=== PATIENT | male | born 1975 | race Caucasian/White ===

== ENCOUNTER 2016-05-16 08:32 | Emergency (ER) | payer MEDICAID, OTHER ==
[~2016-05-16] VITALS: Ht 182.9 cm; Wt 67.1 kg
[~2016-05-16 08:32] MED LIST: EAR DROPS 15 ML15 M1; MOTRIN600 MG PO; PENICILLIN
[2016-05-16 08:36] VITALS: BP 119/89
--- NOTE | 2016-05-16 08:40 | NUR ---
Patient ambulated to bed 3. RN evaluating patient at bedside.
--- NOTE | 2016-05-16 08:43 | NUR ---
Visual acuity completed by RN.
--- NOTE | 2016-05-16 08:45 | NUR ---
Dr. [place] evaluating patient at bedside.
--- NOTE | 2016-05-16 08:49 | NUR ---
PT PRESENTS TO ER W/C/O RIGHT EYE PAIN. PT STATES HE'S HAD THE PAIN AND REDNESS X2 WEEK, AND NOW IS STARTING TO FEEL PAIN IN HIS LEFT EYE. DENIES N/V/D; SKIN IS PINK/WARM/DRY; AAOX4 WITH EVEN AND STEADY GAIT; LUNGS CLEAR BL; HR EVEN AND REGULAR; PT DENIES ANY FEVER, CP, SOB, OR COUGH AT THIS TIME; PATIENT STATES PAIN OF 4/10 AT THIS TIME; VSS; PATIENT POSITIONED FOR COMFORT; HOB ELEVATED; BEDRAILS UP X2; BED DOWN. ER MD MADE AWARE OF PT STATUS.
[2016-05-16 09:09] VITALS: BP 114/74
--- NOTE | 2016-05-16 09:10 | NUR ---
Patient discharged with v/s stable. Written and verbal after care instructions given and explained. Patient alert, oriented and verbalized understanding of instructions. Ambulatory with steady gait. All questions addressed prior to discharge. ID band removed. Patient advised to follow up with PMD. Rx of TYLENOL AND TOBRAMYCIN given. Patient educated on indication of medication including possible reaction and side effects. Opportunity to ask questions provided and answered.NO DRAINAGE NOTED ON RIGHT EYE.
== END 2016-05-16 09:10 | disposition home or self-care (01) ==
LOC: MED 08:32
DX: H10.9 Unspecified conjunctivitis (principal); F17.200 Nicotine dependence, unspecified, uncomplicated